=== PATIENT | male | born 1985 | race Caucasian/White ===

== ENCOUNTER 2018-08-23 09:04 | Emergency (ER) | payer SELFPAY, OTHER ==
[2018-08-23] MEDS: NAPROXEN 250 MG TAB PO (09:46)
== END 2018-08-23 10:12 | disposition home or self-care (01) ==
LOC: M ED 09:04
DX: S93.411A Sprain of calcaneofibular ligament of right ankle, initial encounter (principal); X50.9XXA Other and unspecified overexertion or strenuous movements or postures, initial encounter; Y92.410 Unspecified street and highway as the place of occurrence of the external cause; Z88.0 Allergy status to penicillin; Z87.891 Personal history of nicotine dependence
CPT/HCPCS: 73610